=== PATIENT | male | born 1995 | race Caucasian/White ===

== ENCOUNTER 2020-06-23 00:40 | Emergency (ER) | payer BC ==
[~2020-06-23] VITALS: Ht 185.4 cm; Wt 73.1 kg
[2020-06-23 00:50] VITALS: BP 143/88; Ht 185.4 cm; Wt 73.1 kg
== END 2020-06-23 01:34 | disposition left against medical advice (07) ==
LOC: ED 00:40
DX: Z53.21 Procedure and treatment not carried out due to patient leaving prior to being seen by health care provider (principal)